=== PATIENT | female | born 1985 | race Caucasian/White ===

== ENCOUNTER 2017-02-08 19:20 | Inpatient (IN) ==
[2017-02-08 17:47] LABS: Basophils # 0.1 K/mcL (0.0-0.2); Basophils % 0.5 %; Eosinophils # 0.1 K/mcL (0.0-0.6); Eosinophils % 0.4 %; Hematocrit 38.7 % (35.3-44.9); Hemoglobin 13.1 g/dL (11.5-15.4); Immature Granulocytes % 1.9 % (0-4); Lymphocytes # 2.8 K/mcL (0.6-4.6); Lymphocytes % 18.8 %; Mean Corpuscular HGB Conc 33.9 g/dL (31.6-35.5); Mean Corpuscular Volume 91.5 fL (83.0-100.0); Mean Platelet Volume 11.3 fL (9.4-12.4); Monocytes # 0.9 K/mcL (0.0-1.3); Monocytes % 5.8 %; Platelet Count 217 K/mcL (140-400); Red Blood Count 4.23 M/mcL (3.82-4.97); Red Cell Distribution Width 13.3 % (11.5-14.5); Segmented Neutrophils % 72.6 %
[2017-02-08 17:55] LABS: Protein/Creatinine Ratio,Urine 0.1 mg/mg (0-0.20)
[2017-02-08 18:00] LABS: Alanine Aminotransferase 34 Units/L (0-55); Aspartate Amino Transferase 28 Units/L (5-34); BUN/Creatinine Ratio 9 (6-26); Blood Urea Nitrogen 7 mg/dL (7-20); Lactate Dehydrogenase 262 Units/L (159-327); Uric Acid 6.3 mg/dL (2.6-6.0); eGFR For African Americans > 60 (> 60); eGFR For Non-African Americans > 60 (> 60)
[2017-02-08] MEDS ORDERED: Naloxone 0.4 MG/ML INJ IVP PRN (19:22)
[2017-02-08] MEDS ORDERED: Ondansetron 4 MG/2 ML VIAL IVP PRN (19:22)
[2017-02-08] MEDS ORDERED: Famotidine 20 MG/2 ML VIAL IVP PRN (19:22)
[2017-02-08] MEDS ORDERED: *HR* FentaNYL (PF) 100 MCG/2 ML VIAL IVP PRN (19:22)
[2017-02-08] MEDS ORDERED: Ringers Solution, Lactated 1,000 ML IVC SCH (19:30)
--- NOTE | 2017-02-08 19:55 | Anesthesia Evaluation PreOp ---
Date of Encounter: 02/08/17 Time of Encounter: 19:44 - Past History Planned Operation: vaginal del, , work-up for pre-eclampsia. Cardiac History: HTN (getting workup not on any anti-hypertensive been running sys 130's) Pulmonary History: Denies Any Significant HX CABIN WORKER History: Denies Any Significant HX Other Medical History: Denies Any Significant HX Anesthesia History: No Prior Anesthetic Complications, Past Anesthesia Alcohol Use: none Drug use: none Anesthesia Results - Labs 02/08/17 17:30 02/08/17 17:30 Anesthesia Exam - HEENT Pupil (Motor): Pupils equal Mallampati: II Teeth: Normal Oral Opening: Greater than 3 - CABIN WORKER LOC: Oriented CABIN WORKER Motor: Normal RUE, Normal LUE, Normal RLE, Normal LLE, Normal Face CABIN WORKER Sensory: Normal: RUE, LUE, RLE, LLE, Face - Cardiac Rhythm: Regular Murmur: None - Pulmonary Breath Sounds: bilateral Clear Respiratory Effort: Symmetrical Anesthesia Assess/Plan ASA Score: 2 Modified [place] Scale for Level of Consciousness: Cooperative, oriented, and tranquil Anesthetic Plan: General, Regional Monitoring Plan: Standard Monitors
[2017-02-08] MEDS ORDERED: Lidocaine -MPF 2% 5 ML VIAL INFILT ONE (20:03)
--- NOTE | 2017-02-08 20:11 | OB/GYN History & Physical ---
Date of Encounter: 02/08/17 Time of Encounter: 20:04 Assessment and Plan (1) Gestational hypertension affecting third Current visit: Yes Status: Acute Pt continues with elevated blood pressure., irregular contractions, due to elevated uric acid, variables noted on tracing, maternal symptoms and past history decision made for induction/augmentation of labor. Discussed plan with patient and in agreement. Will AROM, Continuous monitoring, Clear liquids Epidural as desired. anticipate (2) Irregular contractions Current visit: Yes Status: Acute (3) 37 weeks gestation of Current visit: Yes Status: Acute History of Present Illness Chief complaint: contractions elevated BP HPI: Ms. Galvin is a 31 year old female 37+6 here for evaluation of contractions and elevated blood pressure.Denies vaginal bleeding or leaking of fluid. Denies headache, abd pain or discomfort, or visual changes Pt states has felt "off today" with nausea and loose stool this morning. Contractions started earlier this afternoon. Last ate breakfast this morning. Was seen in office by Dr. Mortensen and sent for evaluation. Previous pregnancies complicated by pre-e Labs: O+, Rubella Immune, GBS and serologies negative. Past Med Surg Social Fam HX - Past Medical History Medical history: no medical history Psychiatric history: no psych history - Past Surgical History Surgical History: other (wisdom teeth, head cyst removed as child. ) - Social History Smoking Status: Never smoker Alcohol use: none Drug use: none - Family History Mother Living Status: Still Living Hx Family Autoimmune Disorders: Yes (Lupus) Obstetrical History - Pregnancies : 3 Para: 2 Review of System OB All systems PM: reviewed and no additional remarkable complaints except as stated - Gastrointestinal Gastrointestinal: loose stools (x1 ), nausea - Genitourinary Genitourinary: no vaginal discharge Exam - Constitutional Constitutional: well developed, well nourished, no acute distress, average body habitus - Neck Neck exam: full ROM - Lungs Respiratory exam: CTAB - Cardiovascular Cardiovascular exam: RRR, +S1, +S2 - Breasts Breast: bilateral: normal - Abdomen Abdomen: Present: bowel sounds normal, gravid, non tender - Extremities Extremities exam: normal capillary refill, normal inspection Deep Tendon Reflex Grade: 2+ Normal - Uterus Uterus exam: Present: normal size (gravid), normal contour Results Result Diagrams: 02/08/17 17:30 02/08/17 17:30 Abnormal lab results WBC 15.1 K/mcL (4.3-11.1) H 02/08/17 17:30 Neutrophils # 11.0 K/mcL (1.6-8.9) H 02/08/17 17:30 Uric Acid 6.3 mg/dL (2.6-6.0) H 02/08/17 17:30 All other labs normal. - VTE Reasons for not Prescribing Prophylaxis: Treatment not Indicated - Low risk for VTE
[2017-02-08] MEDS ORDERED: Epidural Premix (fent/bupiv) 110 ML EP ONE (20:41)
--- NOTE | 2017-02-08 20:50 | OB Labor Progress Note ---
Date of Encounter: 02/08/17 Time of Encounter: 20:48 Labor Progress Note - Subjective Subjective: Pt states contractions have increased in frequency and are a little more uncomfortable. Also having increased hip pain - Cervix Cervix: 3/80/-2 - Heart Tones Heart Tones: moderate variablity, +accels, - decels - [place]: q2-4 - Interventions Interventions: AROM for clear fluid - Plan Plan: Epidural if desired Pitocin if no cervical change Anticipate BP now 125/80 no need for medications at this time.
[2017-02-08] MEDS ORDERED: Oxytocin 20 units/ LR 1000 mL 20 UNIT/1,000 ML BAG IVC SCH (21:00)
[2017-02-08] MEDS ORDERED: Metoclopramide 10 MG/2 ML VIAL IVP PRN (22:20)
--- NOTE | 2017-02-08 23:37 | Anesthesia Procedures ---
Date of Encounter: 02/08/17 Time of Encounter: 23:19 Procedures: Anesthesia - Epidural/Spinal Patient ID/Chart reviewed: Yes Patient examined: Yes OB Eval: : 3 OB Eval: Hx Para: 2 OB Eval: Contractions: Non-stressed pattern Consent Obtained: Yes Supplemental Oxygen: None/Room Air Site Prep: Aseptic Technique, Sterile prep and drape, 0.5% Chlorhexidine/Alcohol Patient position: upright Local Anesthetic: Lidocaine 1% Amount of Local Anesthetic used: 2 Touhy Needle Gauge: 18 Touhy Needle Depth (cm): 6 Catheter Depth at Skin (cm): 10 Test Dose (1.5% Lido + Epi): Volume given (mls): 3 Test Dose Result: Negative Loading Dose: Other: 12 from solution Loading Dose Administered: Thru Catheter Infusion Med: 0.125% Bupivacaine w/ 2 mcg/ml Fentanyl Infusion Rate (mls/hr): [address]: Tegaderm, Tape Interspace Used: L4-L5 Loss of Resistance (LORRIE): Yes (saline) Blood: No CSF: No Paresthesia: No Procedure: vss though out, FHR stable per rn's
[2017-02-08] MEDS ORDERED: EPHEDrine 50 MG/ML VIAL ONE (23:41)
[2017-02-08] MEDS ORDERED: *HR* Phenylephrine 10 MG/ML VIAL ONE (23:42)
--- NOTE | 2017-02-09 01:47 | OB Labor Progress Note ---
Date of Encounter: 02/08/17 Time of Encounter: 01:45 Labor Progress Note - Subjective Subjective: Pt comfortable in bed at this time. Feeling increasing pressure with contraction. - Cervix Cervix: 6/80/-2 - Heart Tones Heart Tones: 140/moderate/ Cat I - [place]: q2-3 minutes - Interventions Interventions: VE and IUPC placed. - Plan Plan: Incrase pitocin per policy and use peanut ball for portioning
[2017-02-09] MEDS ORDERED: Famotidine 20 MG/2 ML VIAL IVP ONE (01:50)
--- NOTE | 2017-02-09 02:40 | OB/GYN Procedure Note ---
Delivery - Delivery Date: 02/09/17 Provider: Nerissa Adams Intrapartum events: none Delivery augmentation: rupture of membranes, pitocin Delivery monitor: external FHT, external uterine, internal uterine Anesthesia: epidural Estimated Blood Loss: 100 - (s) Infant A Delivery Date: 02/09/17 Infant Delivery Time: 02:15 Presentation: vertex Position: OA Route of delivery: Gender: Female Viability: Viable Pounds: 6 Ounces: 12 Weight Gram: 3060 kg at 1 minute: 9 at 5 mins: 9 Shoulder Dystocia: not encountered Placenta: spontaneous - Repair Episiotomy: none Laceration Description: None - Complications Delivery complications: none Delivery comments: Pt feeling pressure, began directed bearing down efforts to of liveborn girl. Vertex delivered OA and shoulders easily followed. no nuchal or dystocia encountered. Infant placed on maternal abdomen with spontaneous cry. Placenta delivered spontaneously and intact on inspection. Perineum intact. Fundus firm. EBL 100. Dr. marin present for entire procedure. - Disposition Mom disposition: stable in LDR [place] disposition: stable in LDR
[2017-02-09] MEDS ORDERED: Lanolin 28 GM TUBE TP PRN (03:19)
[2017-02-09] MEDS ORDERED: Benzocaine/Menthol 56 GM AEROSOL SPRAY TP PRN (03:19)
[2017-02-09] MEDS ORDERED: Acetaminophen 325 MG TABLET PO PRN (03:19)
[2017-02-09] MEDS ORDERED: Oxytocin 20 units/ LR 1000 mL 20 UNIT/1,000 ML BAG IVC SCH (03:19)
[2017-02-09] MEDS ORDERED: Oxytocin 20 units/ LR 1000 mL 20 UNIT/1,000 ML BAG IVC ONE (03:38)
[2017-02-09] MEDS: Ibuprofen 600 MG TABLET PO PRN ×2 (07:33→20:41)
[2017-02-09] MEDS: Prenatal Vit/FA 1 EACH TABLET PO SCH (07:33)
[2017-02-10] MEDS: Prenatal Vit/FA 1 EACH TABLET PO SCH (07:51)
--- NOTE | 2017-02-10 08:08 | Discharge Summary ---
Date of Encounter: 02/08/17 Time of Encounter: 08:06 - Discharge Diagnosis (1) Vaginal delivery Priority: Primary Status: Acute Comments: Continue routine care discharge home today (2) Breast feeding status of mother Priority: Secondary Status: Acute Comments: Continue support prn - Discharge Medications Home Medications: Vit/FA 1 each PO DAILY #0 tablet 02/10/17 [Rx] Allergies/Adverse Reactions: Allergies No Known Allergies Allergy (Verified 02/08/17 22:15) Data Procedures and tests throughout hospitalization: Laboratory Tests 02/08/17 02/08/17 02/08/17 17:30 17:30 17:30 WBC 15.1 H RBC 4.23 Hgb 13.1 Hct 38.7 MCV 91.5 MCH 31.0 MCHC 33.9 RDW 13.3 Plt Count 217 MPV 11.3 Immature Gran % 1.9 Seg Neutrophils % 72.6 Lymphocytes % 18.8 Monocytes % 5.8 Eosinophils % 0.4 Basophils % 0.5 Neutrophils # 11.0 H Lymphocytes # 2.8 Monocytes # 0.9 Eosinophils # 0.1 Basophils # 0.1 BUN 7 Creatinine 0.74 Est GFR ( Amer) > 60 Est GFR (Non-Af Amer) > 60 BUN/Creatinine Ratio 9 Uric Acid 6.3 H AST 28 ALT 34 Lactate Dehydrogenase 262 Urine Creatinine 81 Protein/Creatinin Ratio 0.10 Urine Total Protein 8 - Impressions ITS Impressions KUB X-Ray 02/10/17 04:01 IMPRESSION: 1. Nonspecific and nonobstructive bowel gas pattern. D/ / Edward Mcrae MD / Edward Mcrae MD Interpreting Provider: Edward Mcrae MD Date of admission: 02/08/17 19:20 Primary care physician: Steven Meza Consults: 02/09/17 03:19 Consult to Hydraulic Repairer [CONS] Routine Comment: Vaginal delivery, consult needed Discharging clinician: Sarah Blanca Anticipated date of discharge: 02/10/17 - Patient Status Disposition: Home, Self-Care Condition: Good Functional capacity at discharge: independent ambulation - Discharge Instructions Follow Up With: ColSteven davila DO [Primary Care Provider] - Patsy Mortensen DO [Partnered Physician] - - Diet and Activity Activity: increase activity as tolerated Diet: regular diet Hospital Course Reason for admission: induction of labor Delivery: Episiotomy: none Laceration: none Other procedures: none complications: none Discharge diagnosis: IUP at term delivered Force baby: female (breast feeding) Time Attestation: Total time spent providing and/or coordinating discharge services: Time Spent: Less than 30 minutes Exam - Constitutional Vitals: Temp Pulse Resp BP Pulse Ox 97.7 F 67 16 118/79 98 02/09/17 21:22 02/09/17 21:22 02/09/17 21:22 02/09/17 21:22 02/09/17 21:22 General appearance IM: A&O X 3, pleasant, answers questions appropriately - Respiratory Respiratory exam: Present: CTAB - Cardiovascular Cardiovascular exam IM: Present: RRR, +S1, +S2 - GI/Abdominal GI/Abdominal exam IM: normal bowel sounds - Uterine Tone: Firm Uterus Position: 2 Fingers Below Umbilicus, Midline - Extremities Exam Extremities exam IM: Present: full ROM, normal capillary refill, normal inspection - Neurological Exam Neurological exam: alert, oriented X3, reflexes normal
[2017-02-10 22:57] VITALS: BP 124/87
== END 2017-02-10 11:34 | disposition home or self-care (01) | DRG 775 ==
LOC: 1NENULAB → 1NENUOBS 02-09 05:09
PROVIDERS: ADMIT Obstetrics & Gynecology; ATTEND Obstetrics & Gynecology

== ENCOUNTER 2020-01-03 08:00 | Inpatient (IN) ==
[2020-01-03] MEDS ORDERED: Metoclopramide 10 MG/2 ML VIAL IVP PRN (09:07)
[2020-01-03] MEDS ORDERED: Azithromycin 500 MG in 0.9 % Sodium Chloride 250 ML IVPB ONE (09:07)
[2020-01-03] MEDS ORDERED: Naloxone 0.4 MG/ML INJ IVP PRN ×2 (09:07→14:43)
[2020-01-03] MEDS ORDERED: Famotidine 20 MG/2 ML VIAL IVP PRN (09:07)
[2020-01-03] MEDS ORDERED: Ondansetron 4 MG/2 ML VIAL IVP PRN ×2 (09:07→14:43)
[2020-01-03] MEDS ORDERED: *HR* FentaNYL (PF) 100 MCG/2 ML VIAL IVP PRN (09:07)
[2020-01-03 10:13] LABS: Basophils # 0.1 K/mcL (0.0-0.2); Basophils % 0.6 %; Eosinophils % 0.1 %; Hematocrit 38.2 % (35.3-44.9); Hemoglobin 12.8 g/dL (11.5-15.4); Immature Granulocytes % 2.2 % (0-4); Lymphocytes # 2.2 K/mcL (0.6-4.6); Lymphocytes % 17.9 %; Mean Corpuscular HGB Conc 33.5 g/dL (31.6-35.5); Mean Corpuscular Hemoglobin 31.9 pg (28.0-33.3); Mean Corpuscular Volume 95.3 fL (83.0-100.0); Mean Platelet Volume 11.7 fL (9.4-12.4); Monocytes # 0.8 K/mcL (0.0-1.3); Monocytes % 6.7 %; Platelet Count 245 K/mcL (140-400); Red Blood Count 4.01 M/mcL (3.82-4.97); Red Cell Distribution Width 13.2 % (11.5-14.5); Segmented Neutrophils % 72.5 %; White Blood Count 12.4 K/mcL (4.3-11.1)
[2020-01-03 11:26] LABS: Amphetamine Screen,Urine Negative ng/mL (Cutoff=1000); Barbiturate Screen,Urine Negative ng/mL (Cutoff=200); Benzodiazepines Screen,Urine Negative ng/mL (Cutoff=200); Cannabinoid Screen,Urine Negative ng/mL (Cutoff = 50); Cocaine Screen,Urine Negative ng/mL (Cutoff= 300); Opiate Screen,Urine Negative ng/mL (Cutoff=300); Phencyclidine Screen,Urine Negative ng/mL (Cutoff=25)
[2020-01-03] MEDS ORDERED: Oxytocin 20 units/ LR 1000 mL 20 UNIT/1,000 ML BAG IVC ONE (13:41)
[2020-01-03] MEDS ORDERED: Ringers Solution, Lactated 2,000 ML ONE (14:33)
[2020-01-03] MEDS ORDERED: Ropivacaine/PF 0.2% 20 ML VIAL EP ONE (14:43)
[2020-01-03] MEDS ORDERED: *HR* FentaNYL (PF) 100 MCG/2 ML VIAL EP ONE (14:43)
[2020-01-03] MEDS ORDERED: EPHEDrine 50 MG/ML VIAL IVP PRN (14:43)
[2020-01-03] MEDS ORDERED: Epidural Premix (fent/bupiv) 110 ML EP SCH (14:45)
[2020-01-03] MEDS ORDERED: Lidocaine 1% 20 ML MDV ONE (15:08)
[2020-01-03] MEDS ORDERED: Acetaminophen 325 MG TABLET PO PRN (15:27)
[2020-01-03] MEDS ORDERED: Benzocaine/Menthol 56 GM AEROSOL SPRAY TP PRN (15:27)
[2020-01-03] MEDS ORDERED: Oxytocin 20 units/ LR 1000 mL 20 UNIT/1,000 ML BAG IVC SCH (15:30)
[2020-01-03] MEDS: Ibuprofen 600 MG TABLET PO PRN (15:43)
[2020-01-04] MEDS: Ibuprofen 600 MG TABLET PO PRN (07:32)
[2020-01-04] MEDS ORDERED: Prenatal Vit/FA 1 EACH TABLET PO SCH (09:00)
[2020-01-04 15:25] VITALS: BP 122/80
== END 2020-01-04 15:45 | disposition home or self-care (01) | DRG 807 ==
LOC: 1NENULAB 08:04 → 1NENUOBS 18:26
PROVIDERS: ADMIT Obstetrics & Gynecology; ATTEND Obstetrics & Gynecology